=== PATIENT | female | born 1970 | race Caucasian/White ===

== ENCOUNTER → 2016-12-20 | Outpatient (CLI) | payer OTHER ==
[~2016-12-20] VITALS: Ht 152.4 cm; Wt 59.0 kg
[~2016-12-20] MED LIST: SPIRONOLACTONE25 MG PO; SYNTHROID88 MCG PO
[2016-12-20 07:00] VITALS: BP 99/58
== END | disposition home or self-care (01) ==
LOC: IVINF 11-20 10:30
PROVIDERS: Internal Medicine Endocrinology, Diabetes & Metabolism
DX: R53.83 Other fatigue (principal); L65.9 Nonscarring hair loss, unspecified
CPT/HCPCS: 80400; 82024 90; 82533 91; J0834